=== PATIENT | female | born 1985 | race African-American/Black ===

== ENCOUNTER 2016-09-21 11:29 | Emergency (ER) | payer SELFPAY ==
[~2016-09-21] VITALS: Ht 170.2 cm; Wt 68.0 kg
[~2016-09-21 11:29] MED LIST: AMOX875T PO; LIDO20SO PO
[2016-09-21 11:38] VITALS: BP 127/78
[2016-09-21] MEDS ORDERED: GUAI-42 PO (12:07)
[2016-09-21] MEDS ORDERED: PROAIR RESPICL90 MCG IH (12:07)
[2016-09-21] MEDS ORDERED: BENZ100C PO (12:07)
--- NOTE | 2016-09-21 12:07 | PHYS DOC ---
Past Medical History Past Medical History: Other Additional Past Medical Histor: HEART MURMUR Past Surgical History: No Surgical History Alcohol Use: None Drug Use: None Adult General Chief Complaint Chief Complaint: COUGH HPI HPI Patient is a 31 year old female who presents with nasal congestion for one week and a productive cough for 3 days. Patient denies any fever. She states her children had similar symptoms a couple days ago. Review of Systems Review of Systems Constitutional: See history of present illness Eyes: Denies change in visual acuity, redness, or eye pain [] HENT: Nasal congestion Respiratory: Cough Cardiovascular: No additional information not addressed in HPI [] GI: Denies abdominal pain, nausea, vomiting, bloody stools or diarrhea [] : Denies dysuria or hematuria [] Musculoskeletal: Denies back pain or joint pain [] Integument: Denies rash or skin lesions [] Neurologic: Denies headache, focal weakness or sensory changes [] Endocrine: Denies polyuria or polydipsia [] Allergies Allergies Allergies Coded Allergies Type Severity Reaction Last Updated Verified No Known Drug Allergies 12/29/15 No Physical Exam Physical Exam Constitutional: Well developed, well nourished, no acute distress, non-toxic appearance. [] HENT: Normocephalic, atraumatic, bilateral external ears normal, oropharynx moist, no oral exudates, nose normal. [] Eyes: PERRLA, EOMI, conjunctiva normal, no discharge. [] Neck: Normal range of motion, no tenderness, supple, no stridor. [] Cardiovascular:Heart rate regular rhythm, no murmur [] Lungs & Thorax: Bilateral breath sounds clear to auscultation [] Abdomen: Bowel sounds normal, soft, no tenderness, no masses, no pulsatile masses. [] Skin: Warm, dry, no erythema, no rash. [] Back: No tenderness, no CVA tenderness. [] Extremities: No tenderness, no cyanosis, no clubbing, ROM intact, no edema. [] Neurologic: Alert and oriented X 3, normal motor function, normal sensory function, no focal deficits noted. [] Psychologic: Affect normal, judgement normal, mood normal. [] Current Patient Data Vital Signs Vital Signs Date Time Temp Pulse Resp B/P Pulse Ox O2 Delivery O2 Flow Rate FiO2 09/21/16 11:38 98 65 16 127/78 100 Room Air 98.0 EKG EKG [] Radiology/Procedures Radiology/Procedures [] Course & Med Decision Making Course & Med Decision Making Pertinent Labs and Imaging studies reviewed. (See chart for details) Patient is in the ED with a productive cough for 3 days and nasal congestion for one week. Symptoms are viral. Discharged with instructions to take over-the- counter cough and cold medicines. Provided return precautions and discharged in stable condition. Dragon Disclaimer Dragon Disclaimer This electronic medical record was generated, in whole or in part, using a voice recognition dictation system. Departure Departure Impression: Primary Impression: Upper respiratory infection Additional Impression: Cough Disposition: HOME, SELF-CARE Condition: STABLE Referrals: NO PCP (PCP) Follow-up with your doctor in one week Patient Instructions: Cough, Adult, Upper Respiratory Infection, Adult Additional Instructions: You were seen with symptoms consistent with an upper respiratory viral infection. Take the prescribed medicines as ordered. Follow-up with your doctor in one week, come back to the ED if symptoms worsen. Scripts Guaifenesin/Dextromethorphan (Mucinex Dm Er 600-30 Mg Tablet)1 Each Tab.er.12h1 Tab PO PRN Q12HRS #20 TAB Prov:LISA ERAZO APRN 09/21/16 Benzonatate (Tessalon Perle)100 Mg Capsule1 Cap PO TID #30 CAP Prov:LISA ERAZO APRN 09/21/16 Albuterol Sulfate (Proair Respiclick)90 Mcg Aer.pow.ba1 Puff IH PRN Q6HRS PRN SHORTNESS OF BREATH #1 INHALER Prov:LISA ERAZO APRN 09/21/16 Problem Qualifiers Primary Impression: Upper respiratory infection URI type: unspecified URI Qualified Code: J06.9 - Acute upper respiratory infection, unspecified LISA ERAZO APRN Sep 21, 2016 12:07
== END 2016-09-21 12:25 | disposition home or self-care (01) ==
LOC: ER 11:29
DX: J06.9 Acute upper respiratory infection, unspecified (principal)
CPT/HCPCS: 81025; 99283

== ENCOUNTER 2017-08-07 08:59 | Emergency (ER) | payer SELFPAY ==
[2017-08-07 09:22] LABS: URINE HCG POC HCG POSITIVE (Negative)
[2017-08-07 10:05] LABS: ADD MAN DIFF? NO
[2017-08-07 10:19] LABS: BILIRUBIN,URINE NEGATIVE (NEG); CLARITY,URINE CLEAR; COLOR,URINE YELLOW; GLUCOSE,URINE NEGATIVE (NEG); NITRITE,URINE NEGATIVE (NEG); PROTEIN,URINE NEGATIVE (NEG-TRACE)
[2017-08-07 10:24] LABS: BACTERIA,URINE FEW /HPF (0-FEW); RBC,URINE 0 /HPF (0-2); SQUAMOUS EPITHELIAL CELL,UR MANY /LPF; WBC,URINE OCC /HPF (0-4)
[2017-08-07] MEDS: ACETAMINOPHEN 500 MG TABLET PO (10:52)
[2017-08-07] MEDS: IV RINGERS,LACTATED 1000ML 1,000 ML IV (10:52)
[2017-08-07 10:54] LABS: BASO % 1 % (0-3); EOS # 0.1 x10^3/uL (0.0-0.7); EOS % 1 % (0-3); HEMATOCRIT 41.3 % (36.0-47.0); HEMOGLOBIN 13.9 g/dL (12.0-15.5); LYMPH # 1.7 x10^3/uL (1.0-4.8); LYMPH % 27 % (24-48); MEAN CORPUSCULAR HEMOGLOBIN 33 pg (25-35); MEAN CORPUSCULAR HGB CONC 34 g/dL (31-37); MEAN CORPUSCULAR VOLUME 97 fL (79-100); MONO # 0.5 x10^3/uL (0.0-1.1); MONO % 7 % (0-9); NEUT # 4.1 x10^3uL (1.8-7.7); NEUT % 64 % (31-73); PLATELET COUNT 205 x10^3/uL (140-400); RED BLOOD COUNT 4.25 x10^6/uL (3.50-5.40); RED CELL DISTRIBUTION WIDTH 13.3 % (11.5-14.5); WHITE BLOOD COUNT 6.4 x10^3/uL (4.0-11.0)
[2017-08-07 11:01] LABS: ANION GAP 12 (6-14); BLOOD UREA NITROGEN 6 mg/dL (7-20); BUN/CREATININE RATIO 10 (6-20); CALCIUM 9.1 mg/dL (8.5-10.1); CARBON DIOXIDE 25 mmol/L (21-32); CHLORIDE 100 mmol/L (98-107); CREATININE 0.6 mg/dL (0.6-1.0); GLUCOSE 80 mg/dL (70-99); POTASSIUM 4.2 mmol/L (3.5-5.1); SODIUM 137 mmol/L (136-145)
[2017-08-07 11:08] LABS: ALBUMIN 3.6 g/dL (3.4-5.0); ALBUMIN/GLOBULIN RATIO 0.9 (1.0-1.7); ALK PHOS 50 U/L (46-116); ALT (SGPT) 11 U/L (14-59); AST (SGOT) 12 U/L (15-37); TOTAL BILIRUBIN 0.3 mg/dL (0.2-1.0); TOTAL PROTEIN 7.4 g/dL (6.4-8.2)
== END 2017-08-07 11:40 | disposition home or self-care (01) ==
LOC: ER 08:59
DX: O26.891 Other specified pregnancy related conditions, first trimester (principal); R51 Headache; O23.41 Unspecified infection of urinary tract in pregnancy, first trimester; Z3A.00 Weeks of gestation of pregnancy not specified
CPT/HCPCS: 36415; 80053; 81001; 81025; 85025; 87086; 96360; 99284-25; J7120

== ENCOUNTER 2017-08-28 16:54 | Emergency (ER) | payer SELFPAY ==
[2017-08-28 17:09] LABS: URINE HCG POC HCG POSITIVE (Negative)
[2017-08-28 20:43] LABS: AGAP ISTAT 16 mmol/L (6-14); BUN ISTAT 5 mg/dL (8-26); CHLORIDE ISTAT 99 mmol/L (98-110); CREATININE ISTAT 0.6 mg/dL (0.5-1.4); GLUCOSE ISTAT 87 mg/dL (70-99); HEMATOCRIT ISTAT 37 % (36-40); HEMOGLOBIN ISTAT 12.6 g/dL (12-15); ION CA ISTAT 1.25 mmol/L (1.13-1.32); POTASSIUM ISTAT 3.5 mmol/L (3.5-5.0); SODIUM ISTAT 136 mmol/L (135-145); TOT CO2 ISTAT 25 mmol/L (23-32)
== END 2017-08-28 19:50 | disposition home or self-care (01) ==
LOC: ER 16:54
DX: O20.9 Hemorrhage in early pregnancy, unspecified (principal); O21.0 Mild hyperemesis gravidarum; Z3A.12 12 weeks gestation of pregnancy
CPT/HCPCS: 36415; 76801; 80047; 81025; 84702; 86901; 99285-25

== ENCOUNTER 2018-06-26 00:20 | Emergency (ER) | payer SELFPAY ==
[~2018-06-26] VITALS: Ht 170.2 cm; Wt 90.7 kg
[~2018-06-26 00:20] MED LIST changes: +BENZ100C PO; +GUAI-108 PO; +NITR100C62 PO; +ONDA4TAB10 SL; +PROAIR RESPICL90 MCG IH
[2018-06-26 00:25] VITALS: BP 112/73
[2018-06-26] MEDS ORDERED: CYCL5TAB PO (01:08)
[2018-06-26] MEDS ORDERED: CEPH-264 PO (01:08)
[2018-06-26] MEDS ORDERED: IBUP-1060 PO (01:08)
[2018-06-26] MEDS ORDERED: IBUPROFEN 400 MG TABLET. PO ONE (01:15)
[2018-06-26] MEDS ORDERED: CEPHALEXIN 250 MG CAPSULE. PO ONE (01:15)
--- NOTE | 2018-06-26 01:21 | PHYS DOC ---
Past Medical History Past Medical History: Other Additional Past Medical Histor: HEART MURMUR Past Surgical History: Alcohol Use: None Drug Use: None Adult General Chief Complaint Chief Complaint: BACK PAIN OR INJURY [facility] HPI Patient is a 33 year old female who presents with back pain and insect bite to the left forearm. Patient first noticed a bite to the left volar surface of the forearm 3 days earlier. She states the erythema at the site has been expanding since she first noticed. No fever or chills. She also complains of back pain in the upper right side of her back which was present when she awoke yesterday morning. She did not take any medication for the pain. She denies any trauma. No numbness or tingling into the extremities. Denies additional complaints. Review of Systems Review of Systems Constitutional: Denies fever Eyes: Denies change in visual acuity HENT: Denies nasal congestion Respiratory: Denies cough or shortness of breath Cardiovascular: No additional information not addressed in HPI GI: Denies abdominal pain, nausea : Denies dysuria Neurologic: Denies headache, focal weakness or sensory changes Endocrine: Denies polyuria or polydipsia All other systems were reviewed and found to be within normal limits, except as documented in this note. Current Medications Current Medications Current Medications Medications (Trade) Dose Ordered Sig/Lay Start Time Stop Time Status Last Admin Dose Admin Cephalexin HCl (Keflex) 500 mg 1X ONCE 06/26/18 01:15 06/26/18 01:16 DC 06/26/18 01:16 500 MG Ibuprofen (Motrin) 800 mg 1X ONCE 06/26/18 01:15 06/26/18 01:16 DC 06/26/18 01:16 800 MG Allergies Allergies Allergies Coded Allergies Type Severity Reaction Last Updated Verified No Known Drug Allergies 12/29/15 No Physical Exam Physical Exam Constitutional: Well developed, well nourished, no acute distress, non-toxic appearance HENT: Normocephalic, atraumatic, bilateral external ears normal, oropharynx moist Eyes: PERRLA, EOMI, conjunctiva normal Neck: Normal range of motion Cardiovascular:Heart rate regular rhythm, no murmur Lungs & Thorax: Bilateral breath sounds clear to auscultation Skin: Warm, dry, no erythema Back: Tender to palpate and muscle spasm over the right thoracic back. No midline tenderness. Extremities: No 3 cm area of induration and erythema over the volar surface of the left forearm. There is a pustule in the center. Neurologic: Alert and oriented X 3 Psychologic: Affect normal Current Patient Data Vital Signs Vital Signs Date Time Temp Pulse Resp B/P (MAP) Pulse Ox O2 Delivery O2 Flow Rate FiO2 06/26/18 00:25 98.5 82 18 112/73 (86) 100 Room Air 98.5 EKG EKG [] Radiology/Procedures Radiology/Procedures [] Course & Med Decision Making Course & Med Decision Making Pertinent Labs and Imaging studies reviewed. (See chart for details) Patient was evaluated in the emergency department for an insect bite and subsequent cellulitis in the left forearm. She also had complaints of minor muscle spasm and back pain in the thoracic back which was atraumatic. No indication for imaging this evening. Patient was given ibuprofen in the ER and started on Keflex. She was provided ibuprofen and Flexeril and Keflex prescriptions to use at home. Return precautions discussed and she will come back to the ER for any new or worsening symptoms. Otherwise, follow up with her primary care doctor. Dragon Disclaimer Dragon Disclaimer This electronic medical record was generated, in whole or in part, using a voice recognition dictation system. Departure Departure Impression: Primary Impression: Cellulitis Additional Impressions: Muscle spasm Back pain Arthropod bite Disposition: 01 HOME, SELF-CARE Condition: GOOD Patient Instructions: Back Pain, Adult, Cellulitis, [id number], Insect Bite, [id number] Scripts Cyclobenzaprine Hcl (CYCLOBENZAPRINE HCL) 5 Mg Tablet 5 MG PO PRN TID PRN for back pain, #15 TAB Prov: TESS HINTON DO 06/26/18 Ibuprofen (IBUPROFEN) 800 Mg Tablet 800 MG PO PRN TID PRN for PAIN, #20 TAB take with food or milk to avoid upsetting stomach Prov: TESS HINTON DO 06/26/18 Cephalexin (KEFLEX) 500 Mg Capsule 500 MG PO QID for 10 Days, #40 CAP Prov: TESS HINTON DO 06/26/18 Problem Qualifiers TESS HINTON DO Jun 26, 2018 01:21
== END 2018-06-26 01:08 | disposition home or self-care (01) ==
LOC: ER 00:20
DX: S50.862A Insect bite (nonvenomous) of left forearm, initial encounter (principal); L03.114 Cellulitis of left upper limb; M62.830 Muscle spasm of back; W57.XXXA Bitten or stung by nonvenomous insect and other nonvenomous arthropods, initial encounter; Y93.89 Activity, other specified; Y92.89 Other specified places as the place of occurrence of the external cause; Y99.8 Other external cause status
CPT/HCPCS: 99283

== ENCOUNTER 2019-01-01 10:35 | Emergency (ER) | payer OTHER ==
[~2019-01-01] VITALS: Ht 162.6 cm; Wt 90.7 kg
[~2019-01-01 10:35] MED LIST changes: +CEPH-264 PO; +CYCL5TAB PO; +IBUP-1060 PO
[2019-01-01] MEDS ORDERED: ONDANSETRON PF 4 MG/2 ML VIAL. IV ONE (11:15)
[2019-01-01] MEDS ORDERED: IV NORMAL SALINE 1000ML BAG 1,000 ML IV ONE (11:15)
--- NOTE | 2019-01-01 11:17 | PHYS DOC ---
Past Medical History Past Medical History: Other Additional Past Medical Histor: HEART MURMUR Past Surgical History: Alcohol Use: None Drug Use: None Adult General Chief Complaint Chief Complaint: VOMITING IN HPI HPI Patient is a 33 year old female who presents stated she has been having nausea and vomiting for the last week. Has had a positive test at home. Has OB appointment scheduled for next week. The patient states her last LMP was November 17. She is a [id number]. Has been trying to keep fluids down and having difficulty, has no nausea medication at home. Review of Systems Review of Systems Constitutional: Denies fever or chills [] Eyes: Denies change in visual acuity, redness, or eye pain [] HENT: Denies nasal congestion or sore throat [] Respiratory: Denies cough or shortness of breath [] Cardiovascular: No additional information not addressed in HPI [] GI: Denies abdominal pain, bloody stools or diarrhea Reports nausea, and vomiting, [] : Denies dysuria or hematuria [] Musculoskeletal: Denies back pain or joint pain [] Integument: Denies rash or skin lesions [] Neurologic: Denies headache, focal weakness or sensory changes [] Endocrine: Denies polyuria or polydipsia [] Complete systems were reviewed and found to be within normal limits, except as documented in this note. Current Medications Current Medications Current Medications Medications (Trade) Dose Ordered Sig/Lay Start Time Stop Time Status Last Admin Dose Admin Ondansetron HCl (Zofran) 4 mg 1X ONCE 01/01/19 11:15 01/01/19 11:16 DC 01/01/19 11:17 4 MG Sodium Chloride 1,000 ml @ 1,000 mls/hr 1X ONCE 01/01/19 11:15 01/01/19 12:14 01/01/19 11:17 1,000 MLS/HR Allergies Allergies Allergies Coded Allergies Type Severity Reaction Last Updated Verified No Known Drug Allergies 12/29/15 No Physical Exam Physical Exam Constitutional: Well developed, well nourished, no acute distress, non-toxic appearance. [] HENT: Normocephalic, atraumatic, bilateral external ears normal, oropharynx mois t, no oral exudates, nose normal. [] Eyes: PERRLA, EOMI, conjunctiva normal, no discharge. [] Neck: Normal range of motion, no tenderness, supple, no stridor. [] Cardiovascular:Heart rate regular rhythm, no murmur [] Lungs & Thorax: Bilateral breath sounds clear to auscultation [] Abdomen: Bowel sounds normal, soft, no tenderness, no masses, no pulsatile masses. [] Skin: Warm, dry, no erythema, no rash. [] Back: No tenderness, no CVA tenderness. [] Extremities: No tenderness, no cyanosis, no clubbing, ROM intact, no edema. [] Neurologic: Alert and oriented X 3, normal motor function, normal sensory function, no focal deficits noted. [] Psychologic: Affect normal, judgement normal, mood normal. [] Current Patient Data Vital Signs Vital Signs Date Time Temp Pulse Resp B/P (MAP) Pulse Ox O2 Delivery O2 Flow Rate FiO2 01/01/19 10:47 98.2 114 16 126/61 (82) 97 Room Air 98.2 Lab Values Laboratory Tests Test 01/01/19 10:45 01/01/19 10:52 01/01/19 11:05 Urine Collection Type Unknown Urine Color [place] Urine Clarity Clear Urine pH 6.0 Urine Specific [place] 1.025 Urine Protein 30 mg/dL (NEG-TRACE) Urine Glucose (UA) Negative mg/dL (NEG) Urine Ketones (Stick) >=80 mg/dL (NEG) Urine Blood Negative (NEG) Urine Nitrite Negative (NEG) Urine Bilirubin Small (NEG) Urine Urobilinogen Dipstick 1.0 mg/dL (0.2 mg/dL) Urine Leukocyte Esterase Small (NEG) Urine RBC 0 /HPF (0-2) Urine WBC 1-4 /HPF (0-4) Urine Squamous Epithelial Cells Many /LPF Urine Bacteria Few /HPF (0-FEW) Urine Mucus Marked /LPF POC Urine HCG, Qualitative Hcg positive (Negative) White Blood Count 6.1 x10^3/uL (4.0-11.0) Red Blood Count 4.04 x10^6/uL (3.50-5.40) Hemoglobin 13.2 g/dL (12.0-15.5) Hematocrit 38.4 % (36.0-47.0) Mean Corpuscular Volume 95 fL (79-100) Mean Corpuscular Hemoglobin 33 pg (25-35) Mean Corpuscular Hemoglobin Concent 34 g/dL (31-37) Red Cell Distribution Width 13.3 % (11.5-14.5) Platelet Count 231 x10^3/uL (140-400) Neutrophils (%) (Auto) 55 % (31-73) Lymphocytes (%) (Auto) 36 % (24-48) Monocytes (%) (Auto) 7 % (0-9) Eosinophils (%) (Auto) 1 % (0-3) Basophils (%) (Auto) 1 % (0-3) Neutrophils # (Auto) 3.4 x10^3uL (1.8-7.7) Lymphocytes # (Auto) 2.2 x10^3/uL (1.0-4.8) Monocytes # (Auto) 0.4 x10^3/uL (0.0-1.1) Eosinophils # (Auto) 0.1 x10^3/uL (0.0-0.7) Basophils # (Auto) 0.0 x10^3/uL (0.0-0.2) Maternal Serum HCG Beta Subunit 24555 mIU/mL (0-5) H Sodium Level 137 mmol/L (136-145) Potassium Level 3.8 mmol/L (3.5-5.1) Chloride Level 101 mmol/L (98-107) Carbon Dioxide Level 25 mmol/L (21-32) Anion Gap 11 (6-14) Blood Urea Nitrogen 7 mg/dL (7-20) Creatinine 0.8 mg/dL (0.6-1.0) Estimated GFR (Cockcroft-Gault) 101.2 BUN/Creatinine Ratio 9 (6-20) Glucose Level 87 mg/dL (70-99) Calcium Level 9.2 mg/dL (8.5-10.1) Total Bilirubin 0.4 mg/dL (0.2-1.0) Aspartate Amino Transferase (AST) 13 U/L (15-37) L Alanine Aminotransferase (ALT) 15 U/L (14-59) Alkaline Phosphatase 70 U/L (46-116) Total Protein 7.6 g/dL (6.4-8.2) Albumin 3.8 g/dL (3.4-5.0) Albumin/Globulin Ratio 1.0 (1.0-1.7) Laboratory Tests 01/01/19 11:05 Laboratory Tests 01/01/19 11:05 EKG EKG [] Radiology/Procedures Radiology/Procedures [] Course & Med Decision Making Course & Med Decision Making Pertinent Labs and Imaging studies reviewed. (See chart for details) Will get labs, urine, give fluids and zofran and have follow up with OB. Patient feels better after fluids and nausea medications. Labs were unremarkable with exception of UTI. Will d/c home to follow up with OB. Robert Disclaimer Robert Disclaimer This electronic medical record was generated, in whole or in part, using a voice recognition dictation system. Departure Departure Impression: Primary Impression: Nausea and vomiting in Additional Impression: Urinary tract infection during Disposition: HOME, SELF-CARE Condition: STABLE Referrals: UNKNOWN PCP NAME (PCP) Patient Instructions: Nausea and Vomiting Additional Instructions: Come back to ER as needed. Follow up with OB. Drink plenty of fluids. Take nausea medication as directed. Scripts Cephalexin (KEFLEX) 500 Mg Capsule 1 CAP PO BID for 7 Days, #14 CAP Prov: GALLITO LEMOS APRN 01/01/19 Ondansetron (ONDANSETRON ODT) 4 Mg Tab.rapdis 1 TAB PO PRN Q6-8HRS PRN for NAUSEA, #16 TAB Prov: GALLITO LEMOS APRN 01/01/19 Problem Qualifiers Additional Impression: Urinary tract infection during Trimester: first trimester Qualified Codes: O23.41 - Unspecified infection of urinary tract in , first trimester GALLITO LEMOS APRN Jan 01, 2019 11:17
[2019-01-01 11:28] LABS: CALCIUM 9.2 mg/dL (8.5-10.1); CREATININE 0.8 mg/dL (0.6-1.0); GFR 101.2; POTASSIUM 3.8 mmol/L (3.5-5.1)
[2019-01-01 11:33] LABS: ALBUMIN 3.8 g/dL (3.4-5.0); TOTAL BILIRUBIN 0.4 mg/dL (0.2-1.0); TOTAL PROTEIN 7.6 g/dL (6.4-8.2)
[2019-01-01 11:40] LABS: BASO % 1 % (0-3); EOS # 0.1 x10^3/uL (0.0-0.7); EOS % 1 % (0-3); HEMATOCRIT 38.4 % (36.0-47.0); HEMOGLOBIN 13.2 g/dL (12.0-15.5); LYMPH # 2.2 x10^3/uL (1.0-4.8); LYMPH % 36 % (24-48); MEAN CORPUSCULAR HEMOGLOBIN 33 pg (25-35); MEAN CORPUSCULAR HGB CONC 34 g/dL (31-37); MEAN CORPUSCULAR VOLUME 95 fL (79-100); MONO # 0.4 x10^3/uL (0.0-1.1); MONO % 7 % (0-9); NEUT # 3.4 x10^3uL (1.8-7.7); NEUT % 55 % (31-73); PLATELET COUNT 231 x10^3/uL (140-400); RED BLOOD COUNT 4.04 x10^6/uL (3.50-5.40); RED CELL DISTRIBUTION WIDTH 13.3 % (11.5-14.5); WHITE BLOOD COUNT 6.1 x10^3/uL (4.0-11.0)
[2019-01-01 11:45] VITALS: BP 102/52
[2019-01-01 11:50] LABS: BILIRUBIN,URINE SMALL (NEG); CLARITY,URINE CLEAR; COLOR,URINE AMBER; NITRITE,URINE NEGATIVE (NEG); PROTEIN,URINE 30 mg/dL (NEG-TRACE)
[2019-01-01 11:59] LABS: BACTERIA,URINE FEW /HPF (0-FEW); RBC,URINE 0 /HPF (0-2); SQUAMOUS EPITHELIAL CELL,UR MANY /LPF
[2019-01-01] MEDS ORDERED: ONDA4TAB12 PO (12:04)
[2019-01-01] MEDS ORDERED: CEPH-264 PO (12:11)
== END 2019-01-01 12:29 | disposition home or self-care (01) ==
LOC: ER 10:35
DX: O23.41 Unspecified infection of urinary tract in pregnancy, first trimester (principal); O21.9 Vomiting of pregnancy, unspecified; Z3A.00 Weeks of gestation of pregnancy not specified
CPT/HCPCS: 36415; 80053; 81001; 81025; 84702; 85025; 96361; 96374; 99284; J2405; J7030